=== PATIENT | male | born 1955 | race Caucasian/White ===

== ENCOUNTER → 2020-05-21 | Outpatient (CLI) | payer MEDICARE ==
[~2020-05-21] MED LIST: ALBUTEROL0.63 MG/3 INH; LEVAQUIN500 MG PO; NICOTINE PATCH1 EAC2 TD; NORCO 5-325 TA1 EACH PO; TRELEGY ELLIPT1 EACH INH; VALTREX1000 MG PO; ZESTRIL2.5 MG PO
== END ==
LOC: EXRD 15:40
DX: R91.8 Other nonspecific abnormal finding of lung field (principal)
CPT/HCPCS: 71046